=== PATIENT | female | born 1990 | race Two or more races ===

== ENCOUNTER 2022-12-20 12:36 | Outpatient (CLI) | payer OTHER | END 2022-12-20 14:37 | disposition home or self-care (01) | LOC: PRENATAL 12:36 | PROVIDERS: ATTEND Obstetrics & Gynecology Maternal & Fetal Medicine | DX: O36.8199 Decreased fetal movements, unspecified trimester, other fetus (principal); O32.9XX0 Maternal care for malpresentation of fetus, unspecified, not applicable or unspecified; Z3A.32 32 weeks gestation of pregnancy ==

== ENCOUNTER 2023-01-16 11:35 | Inpatient (IN) | payer OTHER ==
[~2023-01-16] VITALS: Ht 160 cm; Wt 103.0 kg
[2023-01-16] MEDS ORDERED: PRENATAL TABLE1 EAC4 PO (12:09)
[2023-01-16] MEDS ORDERED: ADULT LOW DOSE81 M1 PO (12:10)
[2023-01-16] MEDS ORDERED: PROBIOTIC1 EAC4 PO (12:10)
[2023-01-16] MEDS ORDERED: PROBIOTIC250 MG PO (12:10)
[2023-01-18] MEDS ORDERED: NAPR500T14 PO (08:21)
== END 2023-01-18 14:23 | disposition home or self-care (01) | DRG 807 ==
LOC: LDR 11:35 → OB/GYN 19:45
PROVIDERS: ADMIT Student in an Organized Health Care Education/Training Program; ATTEND Student in an Organized Health Care Education/Training Program
PROC: 10E0XZZ Delivery of Products of Conception, External Approach (ICD-10-PCS; principal; 2023-01-16)
PROC: 0KQM0ZZ Repair Perineum Muscle, Open Approach (ICD-10-PCS; 2023-01-16)
PROC: 4A1HXCZ Monitoring of Products of Conception, Cardiac Rate, External Approach (ICD-10-PCS; 2023-01-16)
DX: O70.1 Second degree perineal laceration during delivery (principal); Z37.0 Single live birth; Z3A.36 36 weeks gestation of pregnancy; Z20.822 Contact with and (suspected) exposure to COVID-19